=== PATIENT | female | born 1965 | race Caucasian/White ===

== ENCOUNTER → 2016-05-25 | Outpatient (CLI) | payer BC ==
[~2016-05-25] MED LIST: ALLEGRA 180MG180 MG PO; METAMUCIL1 PDR PO; PROBIOTIC FORMU1 CAP PO
== END ==
LOC: COL.RAD 11:00
DX: N92.1 Excessive and frequent menstruation with irregular cycle (principal); N85.2 Hypertrophy of uterus

== ENCOUNTER → 2016-10-20 | Outpatient (CLI) | payer BC | LOC: MC.RAD 14:32 | DX: Z12.31 Encounter for screening mammogram for malignant neoplasm of breast (principal) ==

== ENCOUNTER 2017-09-07 05:38 | Day surgery (SDC) | payer BC ==
[~2017-09-07] VITALS: Ht 167.6 cm; Wt 71.8 kg
[2017-09-07 06:01] VITALS: BP 154/85; PULSE 72; TEMP 97.5
[2017-09-07] MEDS ORDERED: PROTONIX 40MG T40 MG PO (06:08)
[2017-09-07 06:25] LABS: HEMATOCRIT 38.9 % (37.0-47.0); HEMOGLOBIN 13.2 g/dl (12.5-16.0); MEAN CELL VOLUME 87 fl (80.0-100.0); MEAN CORPUSCULAR HEMOGLOBIN 30 pg (27.0-31.0); MEAN CORPUSCULAR HGB CONC 34 g/dl (33.0-37.0); MEAN PLATELET VOLUME 11.1 fl (7.4-10.4); PLATELET COUNT 253 K/mm3 (130-400); RED BLOOD COUNT 4.47 M/mm3 (4.10-5.30); REDCELL DISTRIBUTION WIDTH-CV 13.2 % (11.5-14.5)
[2017-09-07 06:27] LABS: COLLECTION METHOD CLEAN CATCH
[2017-09-07 06:33] LABS: MUCOUS Present /lpf; PH 7 (5-8); SQUAMOUS EPITHELIAL 0-2 /hpf; URINE APPEARANCE Clear; URINE BACTERIA Rare /hpf; URINE BILIRUBIN Negative (NEGATIVE); URINE BLOOD 1+ (NEGATIVE); URINE COLOR Straw; URINE GLUCOSE Negative (NEGATIVE); URINE KETONE Negative (NEGATIVE); URINE LEUKOCYTE ESTERASE Negative (NEGATIVE); URINE NITRATE Negative (NEGATIVE); URINE PROTEIN(semi-quant) Negative (NEGATIVE); URINE RBC 0-2 /hpf; URINE UROBILINOGEN Negative (NEGATIVE); URINE WBC 0-2 /hpf
[2017-09-07 08:00] VITALS: BP 111/67; PULSE 67
[2017-09-07] MEDS ORDERED: IBU600 MG PO (08:00)
[2017-09-07 08:15] VITALS: BP 107/66; PULSE 62
[2017-09-07 08:30] VITALS: BP 109/74; PULSE 62
== END 2017-09-07 08:45 | disposition home or self-care (01) ==
LOC: SDCO 05:38
PROVIDERS: Obstetrics & Gynecology
DX: N92.6 Irregular menstruation, unspecified (principal); N84.0 Polyp of corpus uteri; A60.00 Herpesviral infection of urogenital system, unspecified; F41.9 Anxiety disorder, unspecified; I10 Essential (primary) hypertension; J45.909 Unspecified asthma, uncomplicated; K21.9 Gastro-esophageal reflux disease without esophagitis
CPT/HCPCS: J1885; J2405; J2704; J3010; J7120

== ENCOUNTER → 2017-11-28 | Outpatient (CLI) | payer BC ==
[~2017-11-28] MED LIST changes: +IBU600 MG PO; +PROTONIX 40MG T40 MG PO
== END ==
LOC: MC.RAD 08:29
DX: Z12.31 Encounter for screening mammogram for malignant neoplasm of breast (principal)

== ENCOUNTER 2018-12-06 10:15 | Outpatient (RCR) | payer BC | END 2018-12-18 11:06 | disposition home or self-care (01) | LOC: MKS.ESL.PT 10:15 | DX: H81.13 Benign paroxysmal vertigo, bilateral (principal) ==

== ENCOUNTER 2018-12-21 08:59 | Day surgery (SDC) | payer BC ==
[~2018-12-21] VITALS: Ht 167.6 cm; Wt 75.0 kg
[2018-12-21] MEDS ORDERED: LIPITOR20 MG PO (09:19)
[2018-12-21 09:28] VITALS: BP 157/98; PULSE 73; TEMP 97.7
[2018-12-21 10:25] VITALS: BP 128/82; PULSE 86; TEMP 97.2
--- NOTE | 2018-12-21 10:25 | NUR ---
Pt to GI bay 4 via cart from [employer]. Pt drowsy, but awakens easily. Pt ambulates to recliner with stand by assist. VSS. in room. Pt denies pain or nausea. Will let pt rest. Call light within reach.
[2018-12-21 10:40] VITALS: BP 116/75; PULSE 76
--- NOTE | 2018-12-21 10:40 | NUR ---
Water and applesauce given per pt request. Will continue to monitor. Call light within reach.
[2018-12-21 10:50] VITALS: BP 130/82; PULSE 76
--- NOTE | 2018-12-21 10:50 | NUR ---
IV site discontinued with all parts intact. Discharge instructions reviewed. Pt and voice understanding. Pt up to dress.
--- NOTE | 2018-12-21 11:00 | NUR ---
Pt escorted to private car via wheel chair. Pt accompanied home by her .
== END 2018-12-21 11:00 | disposition home or self-care (01) ==
LOC: SDCO 08:59
DX: K21.9 Gastro-esophageal reflux disease without esophagitis (principal); Z80.3 Family history of malignant neoplasm of breast; Z80.49 Family history of malignant neoplasm of other genital organs; Z79.899 Other long term (current) drug therapy; E78.00 Pure hypercholesterolemia, unspecified
CPT/HCPCS: OP; J2250; J3010; J7030

== ENCOUNTER → 2018-12-28 | Outpatient (CLI) | payer BC ==
[~2018-12-28] MED LIST changes: +LIPITOR20 MG PO
== END ==
LOC: MC.RAD 13:18
DX: Z12.31 Encounter for screening mammogram for malignant neoplasm of breast (principal)

== ENCOUNTER → 2019-12-31 | Outpatient (CLI) | payer BC | LOC: MC.RAD 10:52 | DX: Z12.31 Encounter for screening mammogram for malignant neoplasm of breast (principal); Z98.82 Breast implant status ==

== ENCOUNTER → 2020-12-31 | Outpatient (CLI) | payer BC | LOC: MC.RAD 11:07 | DX: Z12.31 Encounter for screening mammogram for malignant neoplasm of breast (principal) ==

== ENCOUNTER → 2022-01-18 | Outpatient (CLI) | payer BC | LOC: MC.RAD 13:07 | DX: Z12.31 Encounter for screening mammogram for malignant neoplasm of breast (principal) ==

== ENCOUNTER → 2023-02-23 | Outpatient (CLI) | payer BC ==
[2005-11-21 12:10] VITALS: BP 151/93; PULSE 82; TEMP 98.7
== END ==
LOC: MC.RAD 11:09
DX: Z12.31 Encounter for screening mammogram for malignant neoplasm of breast (principal)

== ENCOUNTER → 2024-02-26 | Outpatient (CLI) | payer BC ==
[2005-11-21 12:10] VITALS: BP 151/93; PULSE 82; TEMP 98.7
== END ==
LOC: MC.RAD 10:59
DX: Z12.31 Encounter for screening mammogram for malignant neoplasm of breast (principal)